=== PATIENT | female | born 1960 | race Caucasian/White ===

== ENCOUNTER 2016-11-22 16:14 | Emergency (ER) | payer BC ==
[2016-11-22] MEDS ORDERED: NS 0.9% 1000 ML* 1,000 ML IV ONE (17:27)
[2016-11-22 17:34] LABS: Hematocrit 42 % (35-47); Hemoglobin 13.9 g/dl (12.0-16.0); Mean Corpuscular HGB Conc 33 g/dl (31-36); Mean Corpuscular Hemoglobin 29 pg (27-31); Mean Corpuscular Volume 87 fL (80-97); Mean Platelet Volume 9 um3 (7.4-10.4); Red Blood Count 4.88 10^6/ul (4.0-5.4); Red Cell Distribution Width 14 % (10.5-15); White Blood Count 8.2 10^3/ul (3.5-10.8)
[2016-11-22 17:46] LABS: Albumin 3.9 g/dL (3.2-5.2); C Reactive Protein 3.68 mg/L (< 5.00); Calcium 8.9 mg/dL (8.6-10.3); EGFR African American 90.2 (>60); EGFR Non-African American 70.1 (>60); Globulin 2.8 g/dL (2-4); Magnesium 1.7 mg/dL (1.9-2.7); Potassium 3.9 mmol/L (3.5-5.0); Total Bilirubin 0.7 mg/dL (0.2-1.0); Total Protein 6.7 g/dL (6.4-8.9)
[2016-11-22 18:00] LABS: TSH (Thyroid Stimulating Horm) 3.1 mcIU/mL (0.34-5.60)
[2016-11-22] MEDS ORDERED: Ibuprofen TAB* 600 MG PO ONE (18:55)
[2016-11-22 19:07] VITALS: BP 117/63
--- NOTE | 2016-11-22 19:49 | RAD ---
INDICATION: Chest tightness for multiple weeks. Shortness of breath associated with chest tightness. Cough. COMPARISON: October 25, 2014 TECHNIQUE: Dual energy PA and routine lateral views of the chest were obtained. REPORT: Elevated lung volumes and both minimal prominence and upper lung zone patchy rarefaction of interstitial markings. No alveolar consolidation, focal pulmonary lesion, pleural effusion, pneumothorax. The heart, pulmonary vasculature, and mediastinal contours are unremarkable. Unremarkable soft tissue contours and osseous structures. IMPRESSION: Stigmata of potential chronic obstructive pulmonary disease and emphysema. No acute cardiopulmonary process evident.
--- NOTE | 2016-11-23 16:38 | ED ---
Janette Stephen Alok, scribed for Marcellus Walker MD on 11/22/16 at 1746 . Complex/Multi-Sys Presentation - HPI Summary HPI Summary: 56F presents to the ED sent here from [facility] with interment bouts of SOB both while at rest and while ambulating for the last month. Pt also notes joint weakness and joint pain in her lower extremities for the last month as well. Today at about 1100, pt states she began to feel dizziness, ALVAREZ, and nausea. Pt also notes stiffness in her lower back and fatigue greater than normal. Pt denies cough. PMHx includes hypothyroid. PCP Dr. Tolentino. - History Of Current Complaint Chief Complaint: EDGeneral Time Seen by Provider: 11/22/16 17:10 Hx Obtained From: Patient Onset/Duration: Lasting Weeks, Still Present Timing: Intermittent, Lasting: Severity Currently: Moderate Severity Initially: Moderate Location: Pain At: - LE joints bilaterally. ALVAREZ Associated Signs And Symptoms: Positive: Dizziness, SOB, Nausea, Back Pain - Stiffness, Other - LE weakness. Fatigue.. Negative: Cough - Allergies/Home Medications Allergies/Adverse Reactions: Allergies Allergy/AdvReac Type Severity Reaction Status Date / Time No Known Allergies Allergy Verified 11/22/16 16:37 PMH/Surg Hx/FS Hx/Imm Hx Endocrine/Hematology History: Reports: Hx Thyroid Disease Denies: Hx Diabetes Cardiovascular History: Denies: Hx Hypertension, Hx Pacemaker/ICD History: Denies: Hx Renal Disease Sensory History: Denies: Hx Hearing Aid Psychiatric History: Denies: Hx Panic Disorder - Surgical History Surgery Procedure, Year, and Place: DEVIATED SEPTUM. FIBROID - EMBOLIZATION Infectious Disease History: No Infectious Disease History: Denies: History Other Infectious Disease, Traveled Outside the [place] in Last 30 Days - Family History Known Family History: Positive: Cardiac Disease, Other - Breast and Prostate CA - Social History Occupation: Employed Full-time Lives: With Family Alcohol Use: None Substance Use Type: Reports: None Smoking Status (MU): Never Smoked Tobacco Review of Systems Positive: Fatigue. Negative: Fever Positive: Shortness Of Breath. Negative: Cough Positive: Other - LE joint pain/weakness Neurological: Other - Dizziness Positive: Headache All Other Systems Reviewed And Are Negative: Yes Physical Exam Triage Information Reviewed: Yes Vital Signs On Initial Exam: Initial Vitals Temp Pulse Resp BP Pulse Ox 99.5 F 82 16 114/63 97 11/22/16 16:20 11/22/16 16:20 11/22/16 16:20 11/22/16 16:20 11/22/16 16:20 Vital Signs Reviewed: Yes Appearance: Positive: Well-Appearing, No Pain Distress Skin: Positive: Warm, Skin Color Reflects Adequate Perfusion, Dry Head/Face: Positive: Normal Head/Face Inspection Eyes: Positive: Normal ENT: Positive: Normal ENT inspection Neck: Positive: Supple, Nontender Respiratory/Lung Sounds: Positive: Clear to Auscultation, Breath Sounds Present Cardiovascular: Positive: RRR Abdomen Description: Positive: Nontender, Soft Bowel Sounds: Positive: Present Musculoskeletal: Positive: Normal Neurological: Positive: Normal, Sensory/Motor Intact, Alert, Oriented to Person Place, Time, CN Intact II-III Psychiatric: Positive: Normal, Affect/Mood Appropriate Diagnostics - Vital Signs Vital Signs Temp Pulse Resp BP Pulse Ox 11/22/16 16:44 82 22 98 11/22/16 16:43 121/69 11/22/16 16:20 99.5 F 82 16 114/63 97 - Laboratory Lab Results: Lab Results 11/22/16 11/22/16 11/22/16 Range/Units 16:50 16:50 16:50 WBC 8.2 (3.5-10.8) 10^3/ul RBC 4.88 (4.0-5.4) 10^6/ul Hgb 13.9 (12.0-16.0) g/dl Hct 42 (35-47) % MCV 87 (80-97) fL MCH 29 (27-31) pg MCHC 33 (31-36) g/dl RDW 14 (10.5-15) % Plt Count 187 (150-450) 10^3/ul MPV 9 (7.4-10.4) um3 Neut % (Auto) 93.5 H (38-83) % Lymph % (Auto) 1.6 L (25-47) % [place] % (Auto) 4.1 (1-9) % Eos % (Auto) 0.5 (0-6) % Baso % (Auto) 0.3 (0-2) % Absolute Neuts (auto) 7.7 (1.5-7.7) 10^3/ul Absolute Lymphs (auto) 0.1 L (1.0-4.8) 10^3/ul Absolute Monos (auto) 0.3 (0-0.8) 10^3/ul Absolute Eos (auto) 0 (0-0.6) 10^3/ul Absolute Basos (auto) 0 (0-0.2) 10^3/ul Absolute Nucleated RBC 0.01 10^3/ul Nucleated RBC % 0.1 Sodium 135 (133-145) mmol/L Potassium 3.9 (3.5-5.0) mmol/L Chloride 104 (101-111) mmol/L Carbon Dioxide 25 (22-32) mmol/L Anion Gap 6 (2-11) mmol/L BUN 16 (6-24) mg/dL Creatinine 0.84 (0.51-0.95) mg/dL Est GFR ( Amer) 90.2 (>60) Est GFR (Non-Af Amer) 70.1 (>60) BUN/Creatinine Ratio 19.0 (8-20) Glucose 110 H (70-100) mg/dL Lactic Acid 1.4 (0.5-2.0) mmol/L Calcium 8.9 (8.6-10.3) mg/dL Magnesium 1.7 L (1.9-2.7) mg/dL Total Bilirubin 0.70 (0.2-1.0) mg/dL AST 21 (13-39) U/L ALT 13 (7-52) U/L Alkaline Phosphatase 59 (34-104) U/L Troponin I 0.00 (<0.04) ng/mL C-Reactive Protein 3.68 (< 5.00) mg/L Total Protein 6.7 (6.4-8.9) g/dL Albumin 3.9 (3.2-5.2) g/dL Globulin 2.8 (2-4) g/dL Albumin/Globulin Ratio 1.4 (1-3) TSH 3.10 (0.34-5.60) mcIU/mL Result Diagrams: 11/22/16 16:50 11/22/16 16:50 Lab Statement: Any lab studies that have been ordered have been reviewed, and results considered in the medical decision making process. - Radiology CXR Xray Interpretation: Positive (See Comments) - IMPRESSION: Stigmata of potential chronic obstructive pulmonary disease and emphysema. No acute cardiopulmonary process evident. Radiology Interpretation Completed By: Radiologist - EKG 1641 Cardiac Rate: NL - 82 bpm EKG Rhythm: Sinus Rhythm Complex Multi-Symp Course/Dx Course Of Treatment: Ms. Bertrand presented with vague symptomotology and was concerned about a tick-borne illness. Blood was sent to the lab and she has been symptomatic long enough that they should be reliable. She had no wheezing but her CXR showed some hyperinflation. I wanted to try a neb but it was late and she didn't want to be jittery and not be able to sleep so I recommended we dispense an inhaler for her to try tomorrow. This may explain her symptoms. - Diagnoses Provider Diagnoses: Bronchospasm Discharge - Discharge Plan Condition: Stable Disposition: HOME Patient Education Materials: Bronchospasm (ED) Referrals: Laura Tolentino MD [Primary Care Provider] - Additional Instructions: Please follow up with Dr. Tolentino The documentation as recorded by the Janette davis Alok accurately reflects the service I personally performed and the decisions made by me, Marcellus Walker MD.
[2016-11-26 21:32] LABS: B garinii/B afzelii PCR Negative (Negative); B mayonii PCR Negative (Negative); B. miyamotoi PCR, B Negative (Negative); Babesia divergens/MO-1 Negative (Negative); Babesia ducani Negative (Negative); Ehrlichia ewingii/canis Negative (Negative)
== END 2016-11-22 21:34 | disposition home or self-care (01) ==
LOC: ED 16:14
DX: J98.01 Acute bronchospasm (principal); R53.1 Weakness; R07.9 Chest pain, unspecified; R06.02 Shortness of breath; R11.0 Nausea; M54.9 Dorsalgia, unspecified; R42 Dizziness and giddiness; R53.83 Other fatigue
CPT/HCPCS: 36415; 71020; 80053; 83605; 83735; 84443; 84484; 85025; 86140; 87476; 87798; 93005; 99282; A9270-GY